=== PATIENT | female | born 1995 | race Caucasian/White ===

== ENCOUNTER → 2024-01-18 12:00 | Outpatient (REF) | payer BC, SELFPAY | LOC: DHSLP 12:00 | PROVIDERS: ATTENDING PHYSICIAN Registered Nurse; FAMILY PHYSICIAN Family Medicine | DX: G47.30 Sleep apnea, unspecified (principal); R06.83 Snoring | CPT/HCPCS: 95810 ==

== ENCOUNTER → 2024-01-19 12:00 | Outpatient (REF) | payer BC, SELFPAY | LOC: DHSLP 12:00 | PROVIDERS: ATTENDING PHYSICIAN Internal Medicine Critical Care Medicine; FAMILY PHYSICIAN Family Medicine | DX: G47.11 Idiopathic hypersomnia with long sleep time (principal); G47.411 Narcolepsy with cataplexy | CPT/HCPCS: 95805 ==

== ENCOUNTER 2025-06-30 19:09 | Emergency (ER) | payer SELFPAY ==
[2025-06-30 19:14] VITALS: BP 135/93
[2025-06-30 19:32] LABS: Hematocrit 36.5 % (37.0-47.0); Hemoglobin 12.4 g/dL (12.0-16.0); Mean Corp Hgb Conc. 34.0 g/dL (33.0-37.0); Mean Corpuscular Volume 91.5 fL (81.0-99.0); Nucleated Red Blood Cells % 0 %; Platelet Count 357 10^3/uL (130-400); Red Cell Dist. Width 12.1 % (11.5-14.5)
[2025-06-30 19:41] LABS: HCG, Serum Qualitative Screen Negative
[2025-06-30 19:47] LABS: ALT (SGPT) 133 U/L (0-35); AST (SGOT) 94 U/L (14-36); Albumin 4.7 g/dl (3.5-5.0); Alkaline Phosphatase 39 U/L (38-126); Blood Urea Nitrogen 7 mg/dl (7-17); Calcium 9.6 mg/dl (8.4-10.2); Carbon Dioxide 26 mmol/L (22-30); Chloride 104 mmol/L (98-107); Glucose 92 mg/dl (70-99); Potassium 3.3 mmol/L (3.5-5.1); Sodium 137 mmol/L (135-145); Total Protein 7.5 g/dl (6.3-8.2); eGFR > 60.00
[2025-06-30 19:48] LABS: COVID-19 Antigen Negative (Negative)
--- NOTE | 2025-06-30 20:59 | ED.GENMED ---
History of Present Illness
<Nicholas Eisenberg MD, Resident - Last Filed: 06/30/25 23:19>
General
Chief Complaint: Cold/Flu/URI Symptoms
Source: patient
Time Seen by Provider: 06/30/25 20:37
History of Present Illness
History of Present Illness:
Patient is a 29-year-old female who presents to the emergency department with nasal drainage, ear drainage, facial tingling, and sinus pressure. She has a history of anxiety, night sweats, night terrors, narcolepsy, GERD, and intermittent
vomiting. She has been having excessive sinus pressure and when she presses on her eyes she states that fluid comes out of her ears and if she presses on her cheeks fluid comes out of her eyes. The symptoms are undulating and have improved and
worsened in the past. Symptoms became so severe and the pressure became so severe that she felt like her eyes 'are about to pop out of her head.' She recently started a medication called Wakix for her narcolepsy. The discharge from her eyes
have been clear without any discoloration or foul odor. The discharge from her nose has been clear without any foul odor the discharge from the ears is also been clear without any odor. She also makes mention of difficulty urinating. She states
that her urine is normal in color without any foul odor or cloudiness.
Past History
<Nicholas Eisenberg MD, Resident - Last Filed: 06/30/25 23:19>
Past History
ED Past Medical History: GERD, Psychiatric (ADHD, anxiety, depression, night terrors), Other (IBS) and Other (Narcolepsy)
ED Past Surgical History: Tonsilectomy and Other (Thymectomy)
Social History
Tobacco: Non-smoker
Alcohol: None
Personal: Single
Living: with family
Employment: Employed
Family History
Family History: Other (Noncontributory)
Review of Systems
<Nicholas Eisenberg MD, Resident - Last Filed: 06/30/25 23:19>
Review of Systems
Constitutional: Reports fever, fatigue, sleep disturbance, night sweats and chills
EENT: Reports tearing, mouth swelling and runny nose
Respiratory: Reports no symptoms
Cardiac: Reports no symptoms
ABD/GI: Reports nausea and vomiting
: Reports difficulty voiding
Musculoskeletal: Reports no symptoms
Skin: Reports rash
Neurological: Reports headache and numbness
Endocrine: Reports no symptoms
Hematologic/Lymphatic: Reports no symptoms
Psychiatric: Reports anxiety
Phy Exam
<Nicholas Eisenberg MD, Resident - Last Filed: 06/30/25 23:19>
General Physical Exam
General Presentation: well appearing
General age: appears stated age
General Skin: warm
General Habitus: normal
General Mental: anxious, tearful and other ( Labile)
General Hydration: appears well hydrated
ENT Exam
Additional ENT: sinus pressure
Eye Exam
Eye Exam: PERRL and EOMI
Pulmonary Exam
Pulmonary Exam: lungs clear, no respiratory distress, no rales, chest non tender, no crackles, no rhonchi, no stridor, no wheezing and no cough
Musculoskeletal Exam
Musculoskeletal Exam: full ROM
Skin Exam
Skin Exam: normal color
Psychiatric Exam
Psychiatric Exam: anxious and labile
Course
<Nicholas Eisenberg MD, Resident - Last Filed: 06/30/25 23:19>
Orders/Labs/Results
Orders:
Orders
06/30/25 19:18
Test Result ONCE
06/30/25 19:24
COVID-19 Antigen Urgent
Source: Nasal Swab
Complete Blood Count/With Diff Urgent
Comprehensive Metabolic Panel Urgent
HCG, Serum Qualitative Screen Urgent
Influenza A+B Rapid Molecular Urgent
CINDY Source: Nasal Swab
Specimen Description:
06/30/25 21:17
Prednisone [Deltasone] 50 mg .ROUTE .STK-MED ONE
06/30/25 21:19
Prednisone [Deltasone] 50 mg PO NOW STA
06/30/25 21:20
Urinalysis Reflex To Culture Urgent
Date Specimen was Collected: 06/30/25
Time Specimen was Collected: 21:15
06/30/25 22:18
CT Head W/o Iv Contrast Urgent
Comment:
Reason For Exam: Intractable headache
06/30/25 23:01
Acetaminophen [Tylenol] 1,000 mg .ROUTE .STK-MED ONE
Acetaminophen [Tylenol] 1,000 mg PO NOW STA
07/01/25 08:00
Prednisone [Deltasone] 50 mg PO DAILY
Abnormal Lab Results
06/30/25
19:24
RBC 3.99 L 10^6/uL
(4.20-5.40)
Hct 36.5 L %
(37.0-47.0)
MCH 31.1 H pg
(27.0-31.0)
Potassium 3.3 L mmol/L
(3.5-5.1)
AST 94 H U/L
(14-36)
ALT 133 H U/L
(0-35)
06/30/25 19:24
06/30/25 19:24
Vital Signs
Initial and Last Documented VS:
Initial Vital Signs
Temp Pulse Resp BP Pulse Ox
97.7 F 85 16 135/93 100
06/30/25 19:14 06/30/25 19:14 06/30/25 19:14 06/30/25 19:14 06/30/25 19:14
Last Documented Vital Signs
Temp Pulse Resp BP Pulse Ox
98.4 F 72 18 132/86 99
06/30/25 22:54 06/30/25 22:54 06/30/25 22:54 06/30/25 22:54 06/30/25 22:54
<Savage Jean, DO - Last Filed: 06/30/25 23:12>
Orders/Labs/Results
Orders:
Orders
06/30/25 19:18
Test Result ONCE
06/30/25 19:24
COVID-19 Antigen Urgent
Source: Nasal Swab
Complete Blood Count/With Diff Urgent
Comprehensive Metabolic Panel Urgent
HCG, Serum Qualitative Screen Urgent
Influenza A+B Rapid Molecular Urgent
CINDY Source: Nasal Swab
Specimen Description:
06/30/25 21:17
Prednisone [Deltasone] 50 mg .ROUTE .STK-MED ONE
06/30/25 21:19
Prednisone [Deltasone] 50 mg PO NOW STA
06/30/25 21:20
Urinalysis Reflex To Culture Urgent
Date Specimen was Collected: 06/30/25
Time Specimen was Collected: 21:15
06/30/25 22:18
CT Head W/o Iv Contrast Urgent
Comment:
Reason For Exam: Intractable headache
06/30/25 23:01
Acetaminophen [Tylenol] 1,000 mg .ROUTE .STK-MED ONE
Acetaminophen [Tylenol] 1,000 mg PO NOW STA
07/01/25 08:00
Prednisone [Deltasone] 50 mg PO DAILY
Abnormal Lab Results
06/30/25
19:24
RBC 3.99 L 10^6/uL
(4.20-5.40)
Hct 36.5 L %
(37.0-47.0)
MCH 31.1 H pg
(27.0-31.0)
Potassium 3.3 L mmol/L
(3.5-5.1)
AST 94 H U/L
(14-36)
ALT 133 H U/L
(0-35)
06/30/25 19:24
06/30/25 19:24
Vital Signs
Initial and Last Documented VS:
Initial Vital Signs
Temp Pulse Resp BP Pulse Ox
97.7 F 85 16 135/93 100
06/30/25 19:14 06/30/25 19:14 06/30/25 19:14 06/30/25 19:14 06/30/25 19:14
Last Documented Vital Signs
Temp Pulse Resp BP Pulse Ox
98.4 F 72 18 132/86 99
06/30/25 22:54 06/30/25 22:54 06/30/25 22:54 06/30/25 22:54 06/30/25 22:54
<Nicholas Eisenberg MD, Resident - Last Filed: 06/30/25 23:19>
*Pulse Oximetry
SaO2: 100
Oxygen Mode of Delivery: Room air
Patient hypoxic: no
*Critical Care Note
Total Time (30-74mins, 75-104mins- exclusive of procedures): 60
<Nicholas Eisenberg MD, Resident - Last Filed: 06/30/25 23:19>
Update Note
Update Note:
Problem List:
Body aches
chills
headaches
fatigue
left ear drainage
sinus pressure
facial tingling
nausea and vomiting
difficulty urinating
Plan:
CBC and CMP ordered
beta-hCG ordered to rule out
COVID swab
flu swab
Urine analysis with reflex to culture
Differential Diagnoses:
sinus congestion
viral upper respiratory infection
medication side effect
anxiety
Radiology: not applicable
EKG: not applicable
Labs:
CBC unremarkable
CMP with mild hypokalemia with a potassium of 3.3, AST of 94, ALT of 133
beta-hCG negative
COVID-negative
flu negative
Updates:
patient presents with signs and symptoms of sinus congestion. Patient is on an histamine agonist medication that may also be part of the exacerbating symptoms of her sinus congestion. It would not be fruitful to give this patient an
antihistamine as it would be counteracting medication currently that she believes helps her. We will give her a dose of steroids in hopes that this helps resolve her congestion.
urine analysis returned and is unremarkable. Patient medically stable. Discussed discharge planning with patient but patient was labile and began to cry and get loud and upset. She discussed prior neck pain. Patient had full range of motion
of the neck and was able to flex her neck her chin to her chest. negative meningeal sign.
CT head ordered�no acute processes found
patient given 1 g of Tylenol for analgesia
patient medically stable and discharged.
ED Attending Note
<Nicholas Eisenberg MD, Resident - Last Filed: 06/30/25 23:19>
-
Portions of this chart may have been created with voice recognition software.� Occasional wrong word or��sound alike� substitutions may have occurred due to the inherent limitations of voice recognition software.
<Savage Jean DO - Last Filed: 06/30/25 23:12>
ED Attending Note
Patient seen and examined by attending physician: Yes
I performed a history and physical exam of patient and discussed management with resident, I reviewed resident's note and agree with documented findings and plan of care.: Yes
ED Attending Note:
Note:
CHIEF COMPLAINT(S)
Head pressure and fluid drainage from the left ear.
HISTORY OF PRESENT ILLNESS
The patient is a 29-year-old female presenting with a chief complaint of head pressure and a sensation of new fluid drainage from the left ear. The patient reports that these symptoms are localized to the left side. She experiences fullness in the
left ear and describes occasional redness around the area, which is noted to be more prominent after lying on the side. The patient has not been on any antibiotics. She describes episodes of feeling hot, nearly passing out, and has been pale
according to a family member. She denies recent fever but reports increased warmth often preceded by a sensation of faintness in the past day or two. The patient also reports discomfort when touching the ear. During examination, the ear appeared
normal, and the eardrum was intact. There were no signs consistent with an outer ear infection, but due to surrounding redness, antibiotics for cellulitis were considered.
Additionally, the patient reports abdominal discomfort, specifically around the belly button and bladder area. She notes urinary dysfunction, including difficulty initiating urination and incomplete bladder emptying. Urine sample collection had been
planned. The patient denies any significant nasal congestion but reports pressure in the head and drooling on the left side, suggesting possible inflammatory changes.
PAST MEDICAL AND SURGICAL HISTORY
The patient takes Adderall for attention-deficit hyperactivity disorder and Wakix (pitolisant) for narcolepsy. She is also on Synthroid for thyroid management.
CHRONIC MEDICAL CONDITIONS SIGNIFICANTLY AFFECTING CARE
1. Narcolepsy
2. Attention-deficit hyperactivity disorder
3. Thyroid disorder
SOCIAL DETERMINANTS AFFECTING HEALTH
The patient reports challenges staying awake without medication, impacting daily functionality and management of existing medical conditions.
MEDICATIONS
1. Adderall
2. Wakix (pitolisant)
3. Synthroid
REVIEW OF SYSTEMS
- Ear, Nose, and Throat: Head pressure, fluid drainage, redness of the ear, drooling.
- Constitutional: Episodes of warmth, near fainting, pallor noticed by the family member.
- Gastrointestinal: Abdominal pain near the belly button and bladder discomfort.
- Genitourinary: Difficulty initiating urination, sensation of incomplete bladder emptying.
PHYSICAL EXAM
General: Alert, at times appears very comfortable and other times is screaming
Skin: Redness noted around the left ear region.
Head: Normocephalic, atraumatic.
Neck: Supple, trachea midline.
Eyes, Ears, Nose, Mouth, and Throat: There is some mild left periorbital erythema but patient states she was laying on the left side earlier, oral mucosa moist. Left ear examination normal, no tragus tenderness. Left TM normal, no debris in canal.
Cardiovascular: Normal peripheral perfusion, no edema.
Respiratory: Respirations are non-labored.
Gastrointestinal: Abdomen nondistended with mild tenderness reported in the periumbilical region.
Back: Normal range of motion, normal alignment.
Musculoskeletal: Normal range of motion, normal strength.
Neurological: Alert and oriented to person, place, time, and situation, no focal neurological deficit observed.
Psychiatric: The patient started crying hysterically once we discussed potential discharge
PROBLEM LIST
Acute:
1. Multiple complaints, facial pain/headache
2. Abdominal pain with urinary symptoms.
Chronic:
1. Narcolepsy
2. Attention-deficit hyperactivity disorder
3. Thyroid disorder
PLAN
1. Prescribe Prednisone 50 mg for acute inflammation with a four-day continuation.
2. Collect urine sample for analysis to evaluate urinary dysfunction.
3. Advise against antihistamine use due to current medication regimen, specifically Wakixs mechanism.
4. Consideration of antibiotics for possible cellulitis if indicated by further inspection.
5. Monitor patient for any changes in symptoms or new developments.
DIFFERENTIAL DIAGNOSIS
The Differential Diagnosis includes, in no particular order and is not limited to:
1. Viral upper respiratory infection
2. Otitis externa
3. Sinusitis
4. Allergic reaction or rhinitis
5. Cellulitis
6. [place] palsy
7. Migraine or tension headache
8. Urinary tract infection
9. Thyroid dysfunction-related symptoms
10. Sleep disorder-related side effects
Urinalysis shows no sign of infection, CBC is normal. Will try steroids.
Prior to anticipated discharge, the patient started crying. I am concerned that there may be a psychiatric component here. Her labs are unremarkable. I personally reviewed the CT imaging of the brain including the sinuses and I see no clear sign
for bacterial sinus infection. She has excellent chin to chest movement with no suggestion of meningitis on physical examination. No meningeal signs. Suspect more of a viral illness.
Discharge Plan
Departure
Patient Disposition: Home (Routine Discharge)
Date of Disposition: 06/30/25
Time of Disposition: 23:04
Patient with high blood pressure during this ER visit?: No
Discharge Problem:
Acute sinusitis
Prescriptions:
New
prednisone 20 mg tablet
20 mg PO DAILY Qty: 5 0RF
Rx Instructions:
Take one dose in the morning for 5 days.
No Action
cyclobenzaprine 10 MG tablet
5 mg PO HSPRN PRN (Reason: back pain/ spasms)
famotidine [Pepcid] 40 MG tablet
40 mg PO QPM
venlafaxine [Effexor] 100 MG tablet
150 mg PO DAILY
alprazolam 0.5 MG tablet
1 mg PO BIDPRN PRN (Reason: anxiety)
dextroamphetamine-amphetamine [Adderall] 20 MG tablet
30 mg PO DAILYPRN PRN (Reason: ADD)
norethindrone-e.estradiol-iron [] 1 EACH tablet
1 ea PO DAILY
pantoprazole 40 MG tablet,delayed release (DR/EC)
40 mg PO DAILY Qty: 30 0RF
Rx Instructions:
Take 30 minutes prior to breakfast in the a.m.
Mydayis ER 37.5 mg Capsule
37.5 mg PO Daily
Referrals:
NONE,* [Active, Internal Medicine]
Interventions
Interventions:
*Risk Screen - Suicide Last Done: 06/30/25 20:56
*General Assessment Last Done: 06/30/25 20:56
*Neglect/Abuse Screening Last Done: 06/30/25 20:56
*ED- Fall Risk Assessment Last Done: 06/30/25 20:56
*ED COVID-19 Vaccine History Last Done: 06/30/25 20:56
ED- Pulmonary Assessment Last Done: 06/30/25 20:57
Discharge Date and Time
Print Language: SAMOAN
[2025-06-30] MEDS: DELTASONE 50 MG PO (21:21)
[2025-06-30 21:28] LABS: Urine Character Clear (Clear)
[2025-06-30 22:54] VITALS: BP 132/86
[2025-06-30 22:55] VITALS: BMI 25.0
[2025-06-30] MEDS: TYLENOL 1000 MG PO (23:03)
== END 2025-06-30 23:21 | disposition home or self-care (01) ==
LOC: EMR 19:09
PROVIDERS: Emergency Medicine; EMERGENCY PHYSICIAN Emergency Medicine; FAMILY PHYSICIAN Family Medicine
DX: J01.90 Acute sinusitis, unspecified (principal); R11.2 Nausea with vomiting, unspecified; R21 Rash and other nonspecific skin eruption; R20.0 Anesthesia of skin; R51.9 Headache, unspecified; R20.2 Paresthesia of skin; R33.9 Retention of urine, unspecified; Z11.52 Encounter for screening for COVID-19; R61 Generalized hyperhidrosis; G47.419 Narcolepsy without cataplexy; F90.9 Attention-deficit hyperactivity disorder, unspecified type; E07.9 Disorder of thyroid, unspecified; F41.9 Anxiety disorder, unspecified; K21.9 Gastro-esophageal reflux disease without esophagitis; K58.9 Irritable bowel syndrome, unspecified; F32.A Depression, unspecified; F51.4 Sleep terrors [night terrors]; G47.9 Sleep disorder, unspecified; Z88.1 Allergy status to other antibiotic agents; Z88.2 Allergy status to sulfonamides; Z88.8 Allergy status to other drugs, medicaments and biological substances
CPT/HCPCS: 99291; 70450; 80053; 81003; 84703; 85025; 87502; 87811